=== PATIENT | female | born 1975 | race Caucasian/White ===

== ENCOUNTER 2017-04-27 12:59 | Outpatient (CLI) | payer OTHER | END 2017-04-27 13:00 | disposition home or self-care (01) | LOC: SONOGRAMA 12:59 | DX: N39.0 Urinary tract infection, site not specified (principal) ==

== ENCOUNTER 2018-03-13 10:18 | Outpatient (CLI) | payer OTHER | END 2018-03-13 11:23 | disposition home or self-care (01) | LOC: NST 10:18 | DX: Z34.83 Encounter for supervision of other normal pregnancy, third trimester (principal) ==

== ENCOUNTER → 2018-03-26 | Outpatient (CLI) | payer OTHER | END | disposition home or self-care (01) | LOC: NST 07:26 | DX: Z34.93 Encounter for supervision of normal pregnancy, unspecified, third trimester (principal) ==

== ENCOUNTER 2018-03-28 09:34 | Inpatient (IN) | payer OTHER ==
[~2018-03-28] VITALS: Ht 162.6 cm; Wt 78.0 kg
== END 2018-03-30 13:42 | disposition home or self-care (01) | DRG 807 ==
LOC: LDR 09:34 → OB/GYN 09:34 → SURH 04-02 13:11
PROVIDERS: ADMIT Obstetrics & Gynecology
PROC: 10E0XZZ Delivery of Products of Conception, External Approach (ICD-10-PCS; principal; 2018-03-28)
PROC: 0KQM0ZZ Repair Perineum Muscle, Open Approach (ICD-10-PCS; 2018-03-28)
PROC: 10907ZC Drainage of Amniotic Fluid, Therapeutic from Products of Conception, Via Natural or Artificial Opening (ICD-10-PCS; 2018-03-28)
PROC: 0W8NXZZ Division of Female Perineum, External Approach (ICD-10-PCS; 2018-03-28)
PROC: 3E033VJ Introduction of Other Hormone into Peripheral Vein, Percutaneous Approach (ICD-10-PCS; 2018-03-28)
PROC: 4A1HXCZ Monitoring of Products of Conception, Cardiac Rate, External Approach (ICD-10-PCS; 2018-03-28)
DX: O70.1 Second degree perineal laceration during delivery (principal); Z37.0 Single live birth; Z3A.38 38 weeks gestation of pregnancy

== ENCOUNTER 2020-10-23 08:00 | Outpatient (CLI) | payer OTHER | END 2020-10-23 08:30 | disposition home or self-care (01) | LOC: PPH VACUNA 08:00 | DX: Z23 Encounter for immunization (principal) ==